=== PATIENT | female | born 2000 | race Caucasian/White ===

== ENCOUNTER 2018-08-04 01:01 | Emergency (ER) | payer BC ==
--- NOTE | 2018-08-04 01:49 | C.PDOC ---
History Of Present Illness 18 year old female presents to the ED c/o dull, aching RLQ abdominal pain that started tonight at 18:00. Patient denies fever, chills, nausea, vomit, diarrhea, dysuria, hematuria. Time Seen by Provider: 08/04/18 01:49 Chief Complaint (Nursing): Abdominal Pain History Per: Patient History/Exam Limitations: no limitations Onset/Duration Of Symptoms: Hrs (18:00) Current Symptoms Are (Timing): Still Present Severity: Mild Pain Scale Rating Of: 4 Location Of Pain/Discomfort: RLQ Radiation Of Pain To:: None Quality Of Discomfort: Sharp, Dull, Aching, Stabbing Associated Symptoms: denies: Nausea, Vomiting, Diarrhea, Urinary Symptoms Recent travel outside of the [place]: No Additional History Per: Patient Abnormal Vaginal Bleeding: No Past Medical History Reviewed: Historical Data, Nursing Documentation, Vital Signs Vital Signs: Last Vital Signs Temp 98.4 F 08/04/18 01:16 Pulse 79 08/04/18 01:16 Resp 16 08/04/18 01:16 BP 129/77 08/04/18 01:16 Pulse Ox 99 08/04/18 01:16 - Medical History PMH: No Chronic Diseases Surgical History: No Surg Hx Family History: States: Unknown Family Hx - Social History Hx Alcohol Use: No Hx Substance Use: No Review Of Systems Constitutional: Negative for: Fever, Chills Cardiovascular: Negative for: Chest Pain Respiratory: Negative for: Shortness of Breath Gastrointestinal: Positive for: Abdominal Pain. Negative for: Nausea, Vomiting Genitourinary: Negative for: Dysuria, Hematuria Musculoskeletal: Negative for: Back Pain Skin: Negative for: Rash Neurological: Negative for: Weakness, Numbness Physical Exam - Physical Exam Appears: Non-toxic, No Acute Distress Skin: Warm, Dry Head: Normacephalic Eye(s): bilateral: Normal Inspection Neck: Supple Chest: Symmetrical Cardiovascular: Rhythm Regular Respiratory: No Rales, No Rhonchi, No Wheezing Gastrointestinal/Abdominal: Soft, Tenderness (RLQ), No Guarding, No Rebound Back: Normal Inspection Extremity: Bilateral: Atraumatic, Normal Color And Temperature, Normal ROM Neurological/Psych: Oriented x3, Normal Speech, Normal Cognition Gait: Steady ED Course And Treatment O2 Sat by Pulse Oximetry: 99 (ON RA) Pulse Ox Interpretation: Normal Progress Note: Plan: - UA Disposition Counseled Patient/Family Regarding: Studies Performed, Diagnosis, Need For Followup, Rx Given - Disposition Referrals: Jose Velásquez MD [Staff Provider] - Disposition: HOME/ ROUTINE Disposition Time: 01:49 Condition: FAIR Additional Instructions: Please return if symptoms recur Prescriptions: Ibuprofen [Motrin Tab] 800 mg PO TID PRN #15 tab PRN Reason: Pain, Moderate (4-7) Polyethylene Glycol 3350 [Miralax] 17 gm PO DAILY #270 ml Tamsulosin HCl [Flomax] 0.4 mg PO DAILY #15 cap.er.24h Instructions: Renal Colic (DC), Kidney Stones (DC), Constipation, Adult (DC) Forms: [employer] (Kiswahili) - Clinical Impression Clinical Impression: Kidney stone on right side, Constipation - Scribe Statement The provider has reviewed the documentation as recorded by the Scribe Marcos Moran All medical record entries made by the Scribe were at my direction and personally dictated by me. I have reviewed the chart and agree that the record accurately reflects my personal performance of the history, physical exam, medical decision making, and the department course for this patient. I have also personally directed, reviewed, and agree with the discharge instructions and disposition.
[2018-08-04 02:42] LABS: HCG,QUALITATIVE URINE NEGATIVE (NEGATIVE)
[2018-08-04 02:53] LABS: SQUAMOUS EPITHIAL 33 /hpf (0-5); URINE AMORPHOUS SEDIMENT OCC /ul (<OCC); URINE BACTERIA OCC (<OCC); URINE BILIRUBIN NEGATIVE (NEGATIVE); URINE BLOOD NEGATIVE (NEGATIVE); URINE CLARITY Turbid (Clear); URINE COLOR Red (YELLOW); URINE GLUCOSE (UA) NORMAL (Normal); URINE LEUKOCYTE ESTERASE 3+ Leu/uL (Negative); URINE PROTEIN NEGATIVE (NEGATIVE); URINE UROBILINOGEN NORMAL mg/dL (0.2-1.0)
[2018-08-04] MEDS ORDERED: Sodium Chloride 0.9% 1,000 ML IV ONE (03:02)
[2018-08-04] MEDS ORDERED: Sodium Chloride 0.9% 1,000 ML ONE (03:19)
[2018-08-04 03:26] LABS: BASO # 0.1 K/uL (0.0-0.2); BASO % 0.7 % (0.0-2.0); EOS % 0.6 % (0.0-4.0); HEMOGLOBIN 11.5 g/dL (11.0-16.0); LYMPH # 2.3 K/uL (1.0-4.3); LYMPH % 33.4 % (20.0-40.0); MEAN CELL VOLUME 79.3 fL (81.0-99.0); MEAN CORPUSCULAR HEMOGLOBIN 25.8 pg (27.0-31.0); MEAN CORPUSCULAR HGB CONC 32.5 g/dL (33.0-37.0); MEAN PLATELET VOLUME 9.3 fL (7.2-11.7); MONO # 0.8 K/uL (0.0-0.8); MONO % 11.9 % (0.0-10.0); NEUT # 3.7 K/uL (1.8-7.0); NEUT % 53.4 % (50.0-75.0); NRBC % 0.1 % (0.0-2.0); RBC 4.47 Mil/uL (3.80-5.20); RED CELL DISTRIBUTION WIDTH 17.4 % (11.5-14.5); WHITE BLOOD COUNT 6.9 K/uL (4.8-10.8)
[2018-08-04 03:33] LABS: ALB/GLOB RATIO 1.3 (1.0-2.1); ALT/SGPT 24 U/L (9-52); AST/SGOT 30 U/L (14-36); BLOOD UREA NITROGEN 11 mg/dL (7-17); CALCIUM 8.7 mg/dl (8.6-10.4); GFR NON-AFRICAN AMERICAN > 60; LIPASE 176 U/L (23-300)
[2018-08-04 03:42] LABS: INR 1.2; PROTHROMBIN TIME 12.7 SECONDS (9.7-12.2)
[2018-08-04] MEDS ORDERED: Iodixanol 320 MG/ML 100 ML BOTTLE IV ONE (05:10)
[2018-08-04 05:58] VITALS: BP 121/80; PULSE 72; RESP 16; TEMP 98.2; O2SAT 98
--- NOTE | 2018-08-04 12:54 | CT ---
Date of service: 08/04/2018 PROCEDURE: CT Abdomen and Pelvis with intravenous contrast HISTORY: Right lower quadrant abdominal pain COMPARISON: None. TECHNIQUE: Multiple contiguous axial images were performed through the abdomen and pelvis with the use of intravenous contrast. Subsequently, sagittal and coronal reformatted images were obtained. Radiation dose: Total exam DLP = 714.19 mGy-cm. This CT exam was performed using one or more of the following dose reduction techniques: Automated exposure control, adjustment of the mA and/or kV according to patient size, and/or use of iterative reconstruction technique. FINDINGS: LOWER THORAX: Unremarkable. LIVER: Few small enhancing foci seen within the left hepatic lobe as demonstrated on series 3, image 20 measuring 6 millimeters and on series 3, image 24 measuring 9 millimeters, nonspecific. Correlation with multiphasic CT or MR may be helpful for further evaluation of the lesions. Mild intrahepatic biliary ductal dilatation. GALLBLADDER AND BILE DUCTS: Unremarkable. PANCREAS: Unremarkable. No gross lesion or ductal dilatation. SPLEEN: Unremarkable. ADRENALS: Unremarkable. No mass. KIDNEYS AND URETERS: Unremarkable. No hydronephrosis. No solid mass. VASCULATURE: Unremarkable. No aortic aneurysm. BOWEL: Colonic diverticulosis with some mild thickening at the level of the sigmoid colon. Moderate fecal retention in the colon. APPENDIX: Unremarkable. Normal appendix. PERITONEUM: See below. LYMPH NODES: Few shotty inguinal and para-aortic lymph nodes. Few shotty mesenteric lymph nodes. BLADDER: Unremarkable. REPRODUCTIVE: Prominent heterogeneous and mixed attenuation of the uterus and bilateral adnexa. 2.3 centimeter enhancing left ovarian cyst. Small amount of free fluid within the posterior pelvis. Further evaluation with pelvic ultrasound may be helpful if clinically indicated. Distension of the pelvic veins which may represent a pelvic venous congestion syndrome. BONES: Degenerative changes. OTHER FINDINGS: Acute intramuscular hematoma and or abscess and or lesion and or additional etiology of the lower 2/3 of the right rectus abdominal muscle measuring up to 7.2 x 5.4 x 9.3 centimeters. Associated prominent thickening and enhancement of the adjacent soft tissues. Associated moderate amount of free fluid within the anterior lower abdomen/pelvis. IMPRESSION: 1. Acute intramuscular hematoma and or abscess and or lesion and or additional etiology of the lower 2/3 of the right rectus abdominal muscle measuring up to 7.2 x 5.4 x 9.3 centimeters. Associated prominent thickening and enhancement of the adjacent soft tissues. Associated moderate amount of free fluid within the anterior lower abdomen/pelvis. 2. Colonic diverticulosis with some mild thickening at the level of the sigmoid colon. Moderate fecal retention in the colon. 3. Few small enhancing foci seen within the left hepatic lobe as demonstrated on series 3, image 20 measuring 6 millimeters and on series 3, image 24 measuring 9 millimeters, nonspecific. Correlation with multiphasic CT or MR may be helpful for further evaluation of the lesions. Mild intrahepatic biliary ductal dilatation. 4. Prominent heterogeneous and mixed attenuation of the uterus and bilateral adnexa. 2.3 centimeter enhancing left ovarian cyst. Small amount of free fluid within the posterior pelvis. Further evaluation with pelvic ultrasound may be helpful if clinically indicated. Distension of the pelvic veins which may represent a pelvic venous congestion syndrome. A preliminary report was generated at 5:31 a.m. on 08/04/[address] Luis Eduardo Beauchamp from [email or web address].
== END 2018-08-04 05:57 | disposition home or self-care (01) ==
LOC: C.ER 01:01
DX: K59.00 Constipation, unspecified (principal); N39.0 Urinary tract infection, site not specified; S30.1XXA Contusion of abdominal wall, initial encounter; X58.XXXA Exposure to other specified factors, initial encounter
CPT/HCPCS: 74177; 80053; 81001; 83690; 84703; 85025; 85610; 85730; 96361; 96374; 99285; J1885; J7030; Q9967